=== PATIENT | male | born 1990 | race Caucasian/White ===

== ENCOUNTER 2016-08-29 22:03 | Emergency (ER) | payer SELFPAY ==
[~2016-08-29] VITALS: Ht 170.2 cm; Wt 59.1 kg
[~2016-08-29 22:03] MED LIST: ATEN25TA PO
[2016-08-29 22:12] VITALS: BP 125/58; PULSE 85; RESP 16; TEMP 97.2
[2016-08-29] MEDS ORDERED: ATEN25TA PO (22:25)
--- NOTE | 2016-08-29 22:25 | PD ---
HPI Chief Complaint: Medication Refill Request Time Seen by Provider: 22:25 Travel History International Travel<30 days: No Contact w/Intl Traveler<30days: No Traveled to known affect area: No History of Present Illness HPI 26-year-old white male presents to emergency department requesting refill of his atenolol. He takes 25 mg twice a day. He took his last dose this evening around 5 PM. He states that he has attempted to get a primary care doctor but has been unsuccessful. He is now out of his medications. He denies any active medical complaints. He states that he takes this for palpitations and anxiety. He states that he does work for him well. PFSH Past Medical History Narrative Medical Anxiety, palpitations Anxiety: Yes Hypertension: Yes Thyroid Disease: Yes (HYPER) Tetanus Vaccination: < 5 Years Past Surgical History Surgical History: No Previous Surgery Social History Alcohol Use: Yes (OCC) Tobacco Use: Yes Allergies-Medications (Allergen,Severity, Reaction): Coded Allergies: No Known Allergies (Unverified , 07/30/16) Reported Meds & Prescriptions Reported Meds & Active Scripts Active Atenolol 25 Mg Tab 25 Mg PO BID Review of Systems Except as stated in HPI: all other systems reviewed are Neg Physical Exam Narrative GENERAL: This is a well-nourished, well-developed patient, in no apparent distress. SKIN: No rashes, ecchymoses or lesions. Warm and dry. HEAD: Atraumatic. Normocephalic. EYES: PERRL, EOMI, no discharge or injection. No scleral icterus. EARS: Clear NOSE: Nasal turbinates appear normal. THROAT: Mucosa pink and moist. Airway patent. NECK: Trachea midline. supple, moves head freely. LUNGS: Clear to auscultation. CV: Regular in rhythm. ABDOMEN: Soft nontender. EXT: No clubbing cyanosis or edema. Data Data Last Documented VS Vital Signs Date Time Temp Pulse Resp B/P Pulse Ox O2 Delivery O2 Flow Rate FiO2 08/29/16 22:12 97.2 85 16 125/58 [facility] Medical Decision Making Medical Screen Exam Complete: Yes Emergency Medical Condition: Yes Medical Record Reviewed: Yes Differential Diagnosis Differential diagnoses: Anxiety, palpitations, med refill Narrative Course I discussed with the patient that further refills will need to be performed by a primary care doctor. I will give him a one-time courtesy month supply of medicine. Patient verbally states understanding. This is medication refill, anxiety, palpitations Diagnosis Primary Impression: Medication refill Additional Impressions: Palpitations Anxiety Patient Instructions: General Instructions Additional Instructions: Rest. Medications as directed. Must follow-up with a primary care doctor for further refills. Return to the ER for any problems. Med/Other Pt SpecificInfo: Prescription(s) given Scripts Atenolol 25 Mg Tab25 Mg PO BID #60 TAB Ref 0 Prov:Lalo Castañeda MD 08/29/16 Disposition: 01 DISCHARGE HOME Condition: Stable Berry Ventura Aug 29, 2016 22:25
== END 2016-08-29 23:13 | disposition home or self-care (01) ==
LOC: NEPB 22:03
DX: R00.2 Palpitations (principal); F41.9 Anxiety disorder, unspecified; Z76.0 Encounter for issue of repeat prescription
CPT/HCPCS: 99281

== ENCOUNTER 2016-10-16 18:01 | Emergency (ER) | payer SELFPAY ==
[~2016-10-16] VITALS: Ht 170.2 cm; Wt 61.0 kg
[2016-10-16 18:10] VITALS: BP 129/84; PULSE 100; RESP 15; TEMP 98.5; O2SAT 98
--- NOTE | 2016-10-16 20:31 | PD ---
HPI Chief Complaint: Medication Refill Request Time Seen by Provider: 20:31 Travel History International Travel<30 days: No Contact w/Intl Traveler<30days: No Traveled to known affect area: No History of Present Illness HPI 26-year-old male with history of hypertension presents to the ED for medication refill. Patient states his atenolol for approximately 48 hours. He denies headache, dizziness, syncope, chest pain, palpitations, abdominal pain, nausea or vomiting. States that he is feeling well but is worried about taking his medications. He has not been checking his blood pressure. Physically he has tried over the last few months to obtain a primary care provider but has been unable. He denies other chronic health problems, takes no other daily medications. NKDA. PFSH Past Medical History Anxiety: Yes Hypertension: Yes Thyroid Disease: Yes (HYPER) ?: Not Social History Alcohol Use: Yes (OCC) Tobacco Use: Yes Allergies-Medications (Allergen,Severity, Reaction): Coded Allergies: No Known Allergies (Unverified , 10/16/16) Reported Meds & Prescriptions Reported Meds & Active Scripts Active Atenolol 25 Mg Tab 25 Mg PO BID Atenolol 25 Mg Tab 25 Mg PO BID Review of Systems Except as stated in HPI: all other systems reviewed are Neg Physical Exam Narrative GENERAL: Well-nourished, well-developed well appearing white male in no acute distress. SKIN: Warm and dry. HEAD: Normocephalic. EYES: No scleral icterus. No injection or drainage. NECK: Supple, trachea midline. No JVD or lymphadenopathy. CARDIOVASCULAR: Regular rate and rhythm without murmurs, gallops, or rubs. Equal pulses in the bilateral extremities. RESPIRATORY: Breath sounds equal bilaterally. No accessory muscle use. GASTROINTESTINAL: Abdomen soft, non-tender, nondistended. MUSCULOSKELETAL: No cyanosis, or edema. She is observed to walk with a normal gait. BACK: Nontender without obvious deformity. No CVA tenderness. Data Data Last Documented VS Vital Signs Date Time Temp Pulse Resp B/P Pulse Ox O2 Delivery O2 Flow Rate FiO2 10/16/16 18:10 98.5 100 15 129/84 98 MDM Medical Decision Making Medical Screen Exam Complete: Yes Emergency Medical Condition: Yes Differential Diagnosis Hypertension versus medication refill versus medical screening exam versus a Narrative Course 26-year-old male with history of hypertension presents to the ED for medication refill. Patient states his atenolol for approximately 48 hours. He denies headache, dizziness, syncope, chest pain, palpitations, abdominal pain, nausea or vomiting. States that he is feeling well but is worried about taking his medications. He has not been checking his blood pressure. States his been unable to establish care with a PCP. Vitals reviewed. Physical exam is unremarkable. I prescribed the medication, gave the patient patient assistance program information and warned him that seeking medication refills through the emergency room is inappropriate. He is instructed to follow-up with the patient 's systems program and Dr. Argueta. He indicated understanding instructions and was amenable to plan of care. The patient is stable and discharged home. Diagnosis Primary Impression: Medication refill Referrals: Bonita Argueta MD Patient Instructions: General Instructions, Hypertension (ED) Additional Instructions: Take medication as prescribed. Follow-up with the patient assistance program as discussed. Return to the ED for any urgent or emergent medical condition. Med/Other Pt SpecificInfo: Prescription(s) given Scripts Atenolol 25 Mg Tab25 Mg PO BID #120 TAB Ref 0 Prov:Surinder White MD 10/16/16 Disposition: 01 DISCHARGE HOME Condition: Stable Dori Romero Oct 16, 2016 20:31
[2016-10-16] MEDS ORDERED: ATEN25TA PO (20:42)
== END 2016-10-16 20:51 | disposition home or self-care (01) ==
LOC: PHED 18:01 → PHEFT 20:51
DX: I10 Essential (primary) hypertension (principal); E05.90 Thyrotoxicosis, unspecified without thyrotoxic crisis or storm; Z72.0 Tobacco use; Z76.0 Encounter for issue of repeat prescription
CPT/HCPCS: 99282

== ENCOUNTER 2016-11-10 19:34 | Emergency (ER) | payer SELFPAY ==
[~2016-11-10] VITALS: Ht 170.2 cm; Wt 61.4 kg
[2016-11-10 19:35] VITALS: BP 146/77; PULSE 88; RESP 16; TEMP 97.6; O2SAT 100
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
== END 2016-11-10 21:27 | disposition left against medical advice (07) ==
LOC: NEPK 19:34
DX: H93.11 Tinnitus, right ear (principal)
CPT/HCPCS: 99281